=== PATIENT | female | born 1930 | race Caucasian/White ===

== ENCOUNTER 2017-04-09 21:59 | Inpatient (IN) | payer OTHER ==
[~2017-04-09] VITALS: Ht 165.1 cm; Wt 54.4 kg
--- NOTE | ~2017-04-09 | HC ---
[facility] [place] [address] CONSULTATION Name: NICOLE HERNANDEZ Room #: 538-P ADM IN M.R.#: [id number] Admission: 04/09/17 Attend Phys: Arnol Conroy Discharge: Date of : 32 Report #: [id number] THIS REPORT FOR: //name// CC: Carlitos Lucero [facility] physician/PCP Arnol Walker DATE OF SERVICE: 04/10/2017. HISTORY OF PRESENT ILLNESS: This 86-year-old female who remains reasonably active and independent. She has had some balance issues recently, she fell yesterday while walking at home landing on the left hip, resulting in a left proximal femur fracture. She had no other injuries. She came to [facility] where she was admitted and evaluated by the hospitalist. At the time of my evaluation, she is frail, slender, she is alert and seems to understand the situation well. Family members are not with her at this time. She states she has no other areas of injury aside from the left hip. The left hip is uncomfortable and seems to be shortened and rotated consistent with a displaced and unstable proximal femur fracture. Objectively, she seems to have no injuries about the head, neck or back. She demonstrates good movement of both upper extremities at the shoulder, elbow, wrist and hand without obvious discomfort. The right lower extremity reveals satisfactory alignment and range of motion without significant discomfort. The left lower extremity is shortened and internally rotated consistent with an unstable proximal femur fracture. X-rays of the pelvis, left hip reveal a comminuted intertrochanteric proximal femur fracture with shortening and varus malalignment. IMPRESSION: I think this fracture is best managed with a surgical stabilization using a TFN nail fixation device. I have discussed this with the patient and she states she understands and would like to press ahead with surgery as soon as possible, pending or scheduling and medical clearance. I think we can proceed with her surgery this morning if possible. I have not yet been able to reach her family, who I believe are in town and should be available pending this, we will plan to proceed with surgical repair of her left hip as soon as possible. <ELECTRONICALLY SIGNED> By: Carlitos Lucero MD 04/11/17 0757 [id number] [id number] Carlitos Lucero MD /nt
--- NOTE | ~2017-04-09 | O ---
[facility] [place] [address] OPERATIVE REPORT Name: NICOLE HERNANDEZ Room #: 538-P ADM IN M.R.#: [id number] Admission: 04/09/17 Attend Phys: Arnol Conroy Discharge: Date of : 31 Report #: [id number] THIS REPORT FOR: //name// CC: Carlitos Lucero [facility] physician/PCP Arnol Walker DATE OF SERVICE: 04/10/2017 DATE OF SERVICE: 04/10/2017. PREOPERATIVE DIAGNOSIS: Left proximal femur intertrochanteric fracture. POSTOPERATIVE DIAGNOSIS: Left proximal femur intertrochanteric fracture. PROCEDURE: Open reduction internal fixation left femur intertrochanteric fracture using TFN fixation device. SURGEON: Carlitos Lucero MD INDICATIONS: This frail 86-year-old female fell at home injuring the left hip. X-rays confirm a comminuted and displaced intertrochanteric fracture, left proximal femur. She has no other significant injuries. We discussed treatment options and elected to go ahead with surgical repair using cephalomedullary TFN nail device. DESCRIPTION OF PROCEDURE: The patient was taken to the operating room where she was placed under general anesthesia. Prophylactic intravenous antibiotics were administered. She was positioned on the fracture table with gentle longitudinal traction applied. C-arm was used to visualize the left hip, satisfactory improvement in alignment was established, the lateral aspect of the left hip and thigh were meticulously prepped and draped. A small skin incision was made just above the greater trochanter. A guidewire was placed through the tip of the trochanter extending into the intramedullary canal. The trochanter was opened with reamer. A [employer] TFN nail device was selected. A 10 mm diameter nail was used. This was inserted into the intramedullary canal and advanced to an appropriate position and outrigger guide was used to place a guidewire into the femoral neck and head. It was positioned in the central to lower portion of the femoral head and neck with satisfactory position. The bone was found to be quite soft and osteopenic. I have elected to use a helical blade for fixation. A 100 mm blade was selected. This was impacted into the femoral neck and head bringing the tip of device to a point about 8-10 mm below the subchondral bone. It seated nicely and appeared to be secure. The proximal locking screw was tightened down. The distal locking screw was then placed using outrigger guide, the position of the components was again assessed with C-arm and felt to [facility] [address] [place] [address] OPERATIVE REPORT Name: NICOLE HERNANDEZ Room #: 538-P [facility] IN M.R.#: [id number] Admission: 04/09/17 Attend Phys: Arnol Conroy Discharge: Date of : 31 Report #: [id number] be satisfactory. The three wounds of the lateral thigh high were thoroughly irrigated. Good hemostasis was established. The fascia at the more proximal wound was closed with 0 Monocryl. The more superficial tissues were closed with 2-0 Monocryl. The skin was closed with skin kristian. A sterile dressing was applied. The patient was awakened and returned to recovery room in satisfactory condition. <ELECTRONICALLY SIGNED> By: Carlitos Lucero MD 04/11/17 0757 [id number] [id number] Carlitos Lcuero MD /nt
--- NOTE | ~2017-04-09 | HC ---
[facility] [place] [address] CONSULTATION Name: NICOLE HERNANDEZ Room #: 538-P [facility] IN ..#: [id number] Admission: 04/09/17 Attend Phys: Arnol Conroy Discharge: 04/14/17 Date of : 31 Report #: [id number] THIS REPORT FOR: //name// CC: Carlitos Lucero [facility] physician/PCP Arnol Walker DATE OF SERVICE: 04/11/2017 HISTORY OF PRESENT ILLNESS: The patient is an 86-year-old white female who fell turning too quickly in her apartment. She sustained pain of her left hip. Workup revealed a left proximal femur intertrochanteric fracture, and she underwent open reduction and internal fixation with a trochanteric fixation nail on 04/10/2017. She is allowed 20 pounds weightbearing. She also had an elevated CPK with some rhabdomyolysis and some leukocytosis initially. We are seeing her in rehabilitation medicine consultation. PAST MEDICAL HISTORY: Includes degenerative arthritis, rectal prolapse repair. PAST SURGICAL HISTORY: As noted above. She has had a tonsillectomy. She had rheumatic fever as a child. Left femur fracture on 04/09/2017. Elbow fracture on the left. HABITS: No history of tobacco or alcohol abuse. FAMILY HISTORY: Significant for diabetes. MEDICATIONS: Please see the full medication listing. SOCIAL HISTORY: The patient lives in an apartment alone. 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 Last fall was approximately 1 year ago. There were two sons in the area. REVIEW OF SYSTEMS: Did not offer any current complaints of chest pain, shortness of breath or abdominal discomfort. She has some left hip discomfort as expected. No other focal extremity pain complaints. PHYSICAL EXAMINATION: GENERAL: An 86-year-old white female rather frail in appearance, in no obvious distress. VITAL SIGNS: Last recorded temperature is 99.3, pulse 78, respirations 18, blood pressure 142/58. HEENT: Appeared to be benign. NEUROLOGIC: She is alert, pleasant, oriented. Cranial nerves are grossly intact. Facies are symmetric. Functional range of motion of both upper [facility] [address] [place] [address] CONSULTATION Name: NICOLE HERNANDEZ Room #: 538-P [facility] IN [facility].#: [id number] Admission: 04/09/17 Attend Phys: Arnol Conroy Discharge: 04/14/17 Date of : 31 Report #: [id number] extremities with strength of grade 3+ to 4-/5. DTRs are trace to 1. Left hip is dressed. She favors moving that left lower extremity. No focal calf swelling. No obvious focal weakness of that right lower extremity. No calf swelling. Tone appeared to be intact. ASSESSMENT: An 86-year-old white female with the following problem list: 1. Left proximal femur intertrochanteric fracture, status post open reduction and internal fixation with trochanteric fixation nailing on 04/10/2017, 20 pounds weightbearing. 2. Elevated CPK. 3. Initial leukocytosis. 4. Premorbid cane/furniture walker. PLAN: Would anticipate that a skilled level would be most appropriate for this patient. Note that case management is involved and has already discussed this and that the patient is agreeable to a skilled facility on discharge. Would agree with this plan. Thank you for asking us to assist in this patient's care. <ELECTRONICALLY SIGNED> By: Carlitos Malagon MD 04/15/17 1518 [id number] [id number] Carlitos Malagon MD /nt
--- NOTE | ~2017-04-09 | EKG ---
[place] [address] [facility] 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 : 1930 Requested By: Daniel Paiz Order Number: [id number] MD: Enrique Das Measurements Intervals [place] Rate: 76 P: 49 WI: 59 QRS: -59 QRSD: 119 T: 77 QT: 420 QTc: 473 Interpretive Statements Sinus rhythm Short WI interval Left anterior fascicular block Left ventricular hypertrophy Anterior infarct, 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
[~2017-04-09 21:59] MED LIST: CALCIUM 500 WI1 EAC4 PO; CELADRIN PO; COLACE 100 MG100 MG PO; COLACE100 MG PO; FISH OIL 1,0001 EAC5 PO; METAMUCIL WAFER1 PKT PO; MIRALAX17 GM PO; MULTIVITAMINS PO; MULTIVITAMINS1 EAC7 PO; NORCO 5-325 TA1 EACH PO
[2017-04-09 22:05] VITALS: BP 130/80
[2017-04-09 22:45] LABS: HEMATOCRIT 33.5 % (37.0-47.0); HEMOGLOBIN 11.1 gm/dL (12.0-15.0); MANUAL DIFF YES; MCH 27.4 pg (26.0-34.0); MCHC 33.3 g/dL (28.0-37.0); MCV 82.3 fL (80.0-100.0); PLATELET COUNT 201 thou/uL (150-400); RBC 4.07 mil/uL (4.20-5.00); RDW 13.4 % (10.5-14.5); WBC 13.6 thou/uL (4.0-11.0)
[2017-04-09 22:52] LABS: CALCIUM 9.6 mg/dL (8.5-10.1); CREATININE 0.7 mg/dL (0.6-1.0); POTASSIUM 4.2 mmol/L (3.5-5.1)
[2017-04-09 23:21] VITALS: BP 133/56
[2017-04-09 23:28] LABS: ABSOLUTE NEUTROPHILS 10.3 thou/uL (1.4-8.2); TOTAL CELL COUNT 100
[2017-04-10] VITALS (7 sets, daily range): BP systolic 115–141; BP diastolic 48–65
[2017-04-10 03:52] LABS: HEMATOCRIT 29.3 % (37.0-47.0); MCH 28.2 pg (26.0-34.0); MCV 82.9 fL (80.0-100.0); RBC 3.53 mil/uL (4.20-5.00); RDW 13.7 % (10.5-14.5); WBC 10.5 thou/uL (4.0-11.0)
[2017-04-10 04:02] LABS: ANION GAP 4 mmol/L (7-16); BUN 20 mg/dL (7-18); CALCIUM 9.1 mg/dL (8.5-10.1); CHLORIDE 107 mmol/L (98-107); CHOLESTEROL 145 mg/dL (<200); CO2 30 mmol/L (21-32); CREATININE 0.6 mg/dL (0.6-1.0); GLUCOSE 116 mg/dL (74-106); HDL CHOLESTEROL 69 mg/dL (>40); LDL CHOLESTEROL 70 mg/dL (<100); POTASSIUM 3.8 mmol/L (3.5-5.1); SODIUM 141 mmol/L (136-145); TC:HDL 2.1 Ratio (Not establshd); TRIGLYCERIDE 32 mg/dL (<150); VLDL 6 mg/dL (<40)
[2017-04-10 04:04] LABS: PROTIME 10.8 Seconds (9.3-11.4)
[2017-04-11 00:30] VITALS: BP 140/57
[2017-04-11 03:14] LABS: GLYCOHEMOGLOBIN (HGB A1C) 5.7 % (4.8-5.6)
[2017-04-11 04:10] VITALS: BP 138/55
[2017-04-11 06:30] LABS: HEMATOCRIT 25.2 % (37.0-47.0); HEMOGLOBIN 8.5 gm/dL (12.0-15.0); MCH 27.9 pg (26.0-34.0); MCHC 33.9 g/dL (28.0-37.0); MCV 82.5 fL (80.0-100.0); RBC 3.05 mil/uL (4.20-5.00); RDW 13.8 % (10.5-14.5); WBC 12.2 thou/uL (4.0-11.0)
[2017-04-11 08:43] VITALS: BP 142/58
[2017-04-11 16:05] VITALS: BP 127/62
[2017-04-11 16:18] VITALS: BP 165/58
[2017-04-11 19:36] VITALS: BP 138/53
[2017-04-12 04:06] VITALS: BP 153/58
[2017-04-12 04:08] LABS: HEMATOCRIT 25.2 % (37.0-47.0); HEMOGLOBIN 8.6 gm/dL (12.0-15.0); MCH 28.4 pg (26.0-34.0); MCV 83.5 fL (80.0-100.0); RBC 3.02 mil/uL (4.20-5.00); RDW 13.8 % (10.5-14.5); WBC 8.9 thou/uL (4.0-11.0)
[2017-04-12 07:31] VITALS: BP 133/46
[2017-04-12 15:15] VITALS: BP 112/55
[2017-04-12 19:23] VITALS: BP 124/47
[2017-04-13 07:30] VITALS: BP 126/57
[2017-04-13 15:26] LABS: URINE BILIRUBIN NEGATIVE (Negative); URINE BLOOD NEGATIVE (Negative); URINE COLOR YELLOW; URINE GLUCOSE-RANDOM* NEGATIVE (Negative); URINE KETONES NEGATIVE (Negative); URINE LEUKOCYTES-REFLEX NEGATIVE (Negative); URINE PROTEIN (DIPSTICK) NEGATIVE (Negative); URINE SPECIFIC GRAVITY 1.015 (1.003-1.035); URINE UROBILINOGEN 0.2 E.U./dl (0.2-1.0)
[2017-04-13 16:02] VITALS: BP 126/54
[2017-04-13 21:00] VITALS: BP 123/51
[2017-04-14 03:40] VITALS: BP 123/53
[2017-04-14 07:30] VITALS: BP 136/61
[2017-04-14] MEDS ORDERED: PEPCID20 MG PO (11:03)
[2017-04-14] MEDS ORDERED: NORCO 5-325 TA1 EACH PO (11:03)
[2017-04-14] MEDS ORDERED: ENOXAPARIN40 MG/0.1 SUBQ (11:03)
== END 2017-04-14 14:05 | DRG 481 ==
LOC: ER 21:59 → EROBS 23:01 → 5S 23:01
PROVIDERS: Hospitalist; Nurse Practitioner; Nurse Practitioner Family; Orthopaedic Surgery
PROC: 0QS704Z Reposition Left Upper Femur with Internal Fixation Device, Open Approach (ICD-10-PCS; principal; 2017-04-10)
DX: S72.142A Displaced intertrochanteric fracture of left femur, initial encounter for closed fracture (principal); R65.10 Systemic inflammatory response syndrome (SIRS) of non-infectious origin without acute organ dysfunction; M19.90 Unspecified osteoarthritis, unspecified site; K59.00 Constipation, unspecified; Z60.2 Problems related to living alone; D72.829 Elevated white blood cell count, unspecified; Z79.899 Other long term (current) drug therapy; Z90.710 Acquired absence of both cervix and uterus; Z83.3 Family history of diabetes mellitus; W18.39XA Other fall on same level, initial encounter; Y93.89 Activity, other specified; Y92.038 Other place in apartment as the place of occurrence of the external cause; Y99.8 Other external cause status
CPT/HCPCS: 10086; 50010; 50101; 50133; 50386; 51412; 51538; 51817; 52145; 52146; 52304; 56525; 57092; 62110; 62900; 70005